=== PATIENT | male | born 2000 | race Caucasian/White ===

== ENCOUNTER 2019-03-19 22:22 | Emergency (ER) | payer SELFPAY ==
[~2019-03-19] VITALS: Ht 180.3 cm; Wt 72.6 kg
[2019-03-19 22:23] VITALS: BP 140/83
--- NOTE | 2019-03-19 23:21 | NUR ---
[id number]
--- NOTE | 2019-03-19 23:33 | NUR ---
NILX2
--- NOTE | 2019-03-19 23:39 | NUR ---
NILX3
== END 2019-03-19 23:42 | disposition left against medical advice (07) ==
LOC: ED 23:31
DX: M25.512 Pain in left shoulder (principal); Z53.21 Procedure and treatment not carried out due to patient leaving prior to being seen by health care provider
CPT/HCPCS: 93005

== ENCOUNTER 2019-10-05 18:20 | Emergency (ER) | payer MEDICAID, OTHER ==
[~2019-10-05] VITALS: Ht 182.9 cm; Wt 73.1 kg
[2019-10-05 19:52] LABS: ALBUMIN 4.1 g/dL (3.4-5.0); ANION GAP 6 mmol/L (5-15); CALCIUM 8.7 mg/dL (8.5-10.1); CHLORIDE 104 mmol/L (98-107); CREATININE 1.04 mg/dL (0.7-1.3)
[2019-10-05 19:55] LABS: BASOPHILS # (AUTO) 0.03 x10^3/uL (0-0.1); BASOPHILS % (AUTO) 0 % (0-1); EOSINOPHILS # (AUTO) 0.16 x10^3/uL (0-0.4); EOSINOPHILS % (AUTO) 2 % (1-7); LYMPHOCYTES # (AUTO) 2.01 x10^3/uL (1-3.4); LYMPHOCYTES % (AUTO) 22 % (22-44); MD NO; MEAN CORPUSCULAR HGB CONC 33.2 g/dL (33.2-36.2); MEAN CORPUSCULAR VOLUME 87.2 fL (81-97); MEAN PLATELET VOLUME 7.9 fL (7.4-10.4); MONOCYTES # (AUTO) 0.87 x10^3/uL (0.2-0.8); MONOCYTES % (AUTO) 10 % (2-9); NEUTROPHILS # (AUTO) 6.02 x10^3/uL (1.8-6.8); NEUTROPHILS % (AUTO) 66 % (42-75); PLATELET COUNT 315 x10^3/uL (130-400); RED BLOOD COUNT 5.25 x10^6/uL (4.38-5.82); RED CELL DISTRIBUTION WIDTH 12.9 % (9.4-14.8)
[2019-10-05 19:56] LABS: TROPONIN I < 0.015 ng/mL (0.000-0.045)
--- NOTE | 2019-10-05 20:12 | NUR ---
PT TO ROOM FROM LOBBY
[2019-10-05 21:10] VITALS: BP 118/74
--- NOTE | 2019-10-05 21:10 | NUR ---
PT RESTING IN BED, PT CONECTED TO MONITOR. RESEARCH AND EVALUATION ANALYST WILL CONTINUE TO MONITOR PT VSS. PT MEDICATED PER EMAR
== END 2019-10-05 21:36 | disposition home or self-care (01) ==
LOC: ED 21:32
DX: R07.2 Precordial pain (principal); R00.2 Palpitations
CPT/HCPCS: 36415; 71046; 80048; 82040; 84484; 85025; 93005; 99285

== ENCOUNTER 2020-03-11 18:33 | Emergency (ER) | payer SELFPAY ==
[~2020-03-11] VITALS: Ht 182.9 cm; Wt 73.3 kg
--- NOTE | 2020-03-11 19:09 | NUR ---
PATIENT TRANSFERRED FROM LOBBY TO ROOM; GAIT STEADY. DENIES LOC. STATES FELL WHILE SNOWBOARDING TODAY AND TRIED TO STOP WITH R WRIST. MILD SWELLING AND ERYTHEMA TO R WRIST. 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 DENIES PAIN IN R SHOULDER/ELBOW. STATES PAIN RADIATES UP TO R MID FOREARM. SAFETY MAINTAINED. CALL [facility] IN REACH. VS STABLE ON RA. ELBA IN LOWEST POSITION
[2020-03-11 20:02] VITALS: BP 115/74
--- NOTE | 2020-03-11 20:05 | NUR ---
patient resting in bed using cell phone. in NAD. [employer] at bedside applying ordered splint to R wrist
--- NOTE | 2020-03-11 20:28 | NUR ---
ambulated to bathroom; steady gait. [facility]
--- NOTE | 2020-03-11 20:37 | NUR ---
discharge instructions reviewed with patient. no questions at this time from patient. patient states he understands MD and RN discourage him to go snowboarding tomorrow, he has planned trip to [place] starting tomorrow, but states he will "be careful and wont fall". further verbal education and written education provided on splint s/s to watch for. patient acknowledges understanding. he also states he has had a smiliar splint before and knows what to watch for. ambulated out to the [facility]. all personal belongings with patient
== END 2020-03-11 20:41 | disposition home or self-care (01) ==
LOC: ED 19:37
DX: S52.501A Unspecified fracture of the lower end of right radius, initial encounter for closed fracture (principal); W19.XXXA Unspecified fall, initial encounter; Y93.23 Activity, snow (alpine) (downhill) skiing, snowboarding, sledding, tobogganing and snow tubing; Y92.828 Other wilderness area as the place of occurrence of the external cause; Y99.8 Other external cause status
CPT/HCPCS: 29125; 99284